=== PATIENT | male | born 1950 | race Caucasian/White ===

== ENCOUNTER 2021-05-22 15:55 | Inpatient (IN) | payer OTHER ==
[~2021-05-22] VITALS: Ht 182.9 cm; Wt 73.9 kg
[2021-05-22 20:45] VITALS: BP 121/59
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
--- NOTE | 2021-05-23 02:23 | NUR ---
PATIENT HAS BEEN UP IN DINING ROOM AND LOOKING FOR HIS . HE THINKS SHE'S SITTING OUTSIDE THE HOSPITAL IN A TRUCK. WHEN TOLD SHE WAS AT HOME AND SAFE, HE THEN COULDN'T FIGURE OUT HOW SHE GOT HOME AND WORRIED IF SHE WAS OKAY. PATIENT DID TALK ON THE PHONE WITH HIS THIS EVENING BEFORE ALL OF THIS BUT SHORT TERM MEMORY. PATIENT TOOK TRAZADONE TONIGHT FOR FIRST TIME. IT DID CAUSE HIM TO BECOME DROWSY SOON AND HE WAS A LITTLE UNSTEADY ON HIS FEET. PATIENT WAS UP OUT OF BED ONCE FOR AWHILE AND THEN STAYED IN ROOM AFTER BEING ASSISTED BACK TO BED AFTER AWHILE. PT DENIES PAIN. NO SI/HI/AVH NOTED. BED ALARM IS ON TONIGHT D/T TRAZADONE. BED IN LOW POSITION. CONTINUIED ROUNDS AND MONITORING FOR SAFETY AND STATUS OF PATIENT.
--- NOTE | 2021-05-23 03:55 | NUR ---
PATIENT HAS BEEN UP IN HIS ROOM AND TAKING HIS CHUX OFF HIS BED AND MOVING IT AROUND. TAKING KLEENEX'S OUT OF KLEENEX BOX AND COVERING THINGS. MOVING LOSE ITEMS AROUND AND LOOKING FOR GUNS. HE WAS BROUGHT OUT TO THE DINING ROOM AND PAPER AND MARKERS AND A PENCIL GIVEN TO HIM TO DO HIS "REPORTS". PATIENT GIVEN ICE WATER. PATIENT UP TRYING TO GET OUT OF RECLINER. WALKING AROUND UNSTEADY ON FEET. WONT KEEP NONSKID SOCKS ON. WANTS TO GO TO PATIENT ROOMS AND LOOK FOR THE LONG GUNS THAT ARE MISSING. PATIENT IS RESTLESS. DR YAÑEZ CALLED AND ORDER FOR SEROQUEL 50MG PO RECIEVED BY PHONE. ONE TIME ORDER. AWAITING IT TO BE PUT IN PIXUS. PT WAS GIVEN ATIVAN 1MG PO ONE TIME A FEW HOURS AGO D/T SAME KIND OF BEHAVIORS.
--- NOTE | 2021-05-23 05:29 | NUR ---
PATIENT STILL UP AND WIDE AWAKE IN DINING ROOM. SITTING IN A RECLINER AND ANXIOUS. HAS BEEN TOILETED AND WATER GIVEN TO DRINK. PATIENT YELLING OUT "ANYONE WANTING WATER, OR SOMETHING TO DRINK, COME AND GET IT!" PATIENT TRYING TO GET OUT OF CHAIR. CONTINUING TO MONITOR.
[2021-05-23 08:04] LABS: CHOLESTEROL 150 mg/dL (<200); HDL CHOLESTEROL 63 mg/dL (>40); LDL CHOLESTEROL 70 mg/dL (<100); TC:HDL 2.4 Ratio (Not establshd); TRIGLYCERIDE 88 mg/dL (<150); VLDL 18 mg/dL (<40)
[2021-05-23 09:31] VITALS: BP 126/84
--- NOTE | 2021-05-23 17:39 | NUR ---
Alert and orientated to person and place but not to time. Denies SI/HI. Mistakes female peers for and repeatedly expressing concern about her care. Ambulates with walker with steady gait under supervision. Increasingly restless, wanting to get out of chair late AM. Olanzapine given PO on 3rd approach. Calm majority of afternoon. Breath sounds clear. Reg HR auscultated. Color pink with brisk capillary refill and palpable peripheral pulses. Incontinent this AM of yellow urine, independently voided per toilet this afternoon. Smear of stool on brief. Active bowel sounds over soft, rounded abdomen. called requesting update, states pt stays busy most of day. Requesting update from Dr. Gracia when he is able. Currently in day room with peers, no s/o distress.
[2021-05-23 19:51] VITALS: BP 128/74
[2021-05-23 21:00] VITALS: BP 128/74
--- NOTE | 2021-05-23 21:08 | H ---
[facility] [place] [address] [place] [address] HISTORY AND PHYSICAL Name: FAM DU Room #: 528B-B ADM IN M.R.#: [id number] Admission: 05/22/21 Attend Phys: Juan Ramon Gracia DO Discharge: Date of : 50 Report #: [id number] THIS REPORT FOR: cc: Jak Rodriguez MD, Matthew S. MD Kerstein,Juan Ramon Sibley DO ~ DATE OF SERVICE: 05/22/2021 INPATIENT PSYCHIATRIC EVALUATION PRIMARY ATTENDING PSYCHIATRIST: Juan Ramon Gracia DO BIG DATA ADMIN: Chandrika Ortega Russell, who collaborates with Michele Gama MD and his hospitalist team. REASON FOR ADMISSION: The patient was in hospital transfer from [facility], which would best be described as behavioral disturbance in the setting of dementia. CHIEF COMPLAINT: Unspecified. HISTORY OF PRESENT ILLNESS: This is a 70-year-old male who is ill appearing, BMI 22.2, weight 74.162 kilos, height 182.88 cm. From the H and P at [facility], he presented there on 05/14 with a fall. The patient has complicated past medical history including paroxysmal atrial fibrillation, pancreatic cancer and the patient is status post Whipple, which is a pancreaticoduodenectomy. He has hypertension, history of alcoholism, gastroesophageal reflux disease and probable dementia. Additional information from the [facility] records, the patient did not know why he was here and he had no complaints. He does have a bruise on the right side of his head that appears to be a few days old. He admits he has fallen recently. The patient could not tell them at [facility] when or what was going on at the time. ADDITIONAL INFORMATION: The patient's brought him to the Emergency Room because he was not behaving normally. Apparently, the patient is normally independent in his activities of daily living; however, he has been very frustrated. They attempted to reach his by phone and she did not answer. Interestingly, myself and social professionals called her today. I left her a voicemail with my cell number to call me. REVIEW OF SYSTEMS: The patient when I asked him if he had any pain or complaints this morning he denied. from [facility] ER, he noted: CONSTITUTIONAL: Negative for chills or fever. HEENT: Negative for congestion, hearing loss, sinus pain or sore throat. Negative for blurred vision, double vision. RESPIRATORY: Negative for cough, shortness of breath and wheezing. [address] [address] HISTORY AND PHYSICAL Name: FAM DU Room #: 528B-B ADM IN M.R.#: [id number] Admission: 05/22/21 Attend Phys: Juan Ramon Gracia DO Discharge: Date of : 50 Report #: [id number] CARDIOVASCULAR: Negative for chest pain, palpitations, leg swelling. GASTROINTESTINAL: Negative for abdominal pain, constipation, diarrhea, heartburn, nausea or vomiting. GENITOURINARY: Negative for dysuria, frequency, hematuria, or urgency. MUSCULOSKELETAL: Positive for falls. Negative for back pain, joint pain, myalgias. SKIN: Negative for rash. NEUROLOGIC: Negative for dizziness, tingling, weakness and headaches. PSYCHIATRIC: The patient is noncompliant. Otherwise, review of systems is negative. PAST MEDICAL HISTORY: Quite complicated, he has a history of melena, acute blood loss anemia, gastritis with hemorrhage 06/2017. He has a history of adenocarcinoma of the head of the pancreas, aortic aneurysm without rupture, ascending aorta dilatation. He has a dilated aorta at the sinuses of Valsalva 3.7 cm and ascending aorta 3.9 cm, bilateral leg edema, chronic constipation with poor diet and chronic gastritis. Additional problems include duodenal stricture, erectile dysfunction. History of psychiatric morbidities include anxiety, depression, and alcoholism. Some more medical morbidities listed from reference to [facility] are elevated LFTs, essential hypertension, hyperbilirubinemia, history of hypokalemia, impaired fasting glucose, incidental lung nodule greater than 3 mm and less than 8 mm. This author states "I have no idea at present if there has been followup and investigation due to the lung nodule," iron deficiency anemia, long-term use of anticoagulant drug, paroxysmal atrial fibrillation, Peyronie's disease, history of seizure as a child, and severe protein-calorie malnutrition. PAST SURGICAL HISTORY: Surgical history for this patient seems to be equally complex and complicated including a right total hip arthroplasty in 05/[address] Mosqueda, decompressive laminectomy, biopsy of the duodenum in 06/2016, cholecystectomy 2015, colonic surgery 2015, EGD with endoscopic ultrasound by ERCP with stent placement 06/2016, EGD 06/2017, EGD 07/2017, EGD with hemorrhage 09/21/2017. GI biopsy 06/2016. GI sphincterotomy 06/2016. This one unexpected insertion of penile prosthesis, and inflatable penile prosthesis placement with Coloplast device on 09/11/2015. Laminectomy is noted from 2005, Whipple was in 08/2016. He does have a Port-A-Cath placement 08/2016, prostate biopsy 2013. He had repair of a hydrocele, the tunica vaginalis 1974, left tonsillectomy way back in 1956. FAMILY HISTORY: Includes colon cancer in his father, unknown abdominal cancer in his father, Alzheimer disease in his mother, Alzheimer disease in brother, early due to Alzheimer's in his brother. I am not sure if it is the same brother or different brother, but it is significant for this patient. [facility] [address] [place] [address] HISTORY AND PHYSICAL Name: FAM DU Room #: 528B-B ADM IN [facility].#: [id number] Admission: 05/22/21 Attend Phys: Juan Ramon Gracia DO Discharge: Date of : 50 Report #: [id number] SOCIAL HISTORY: Smoking history is notable half pack per day for 13 years, 6-1/2 pack year history. He smokes cigars and cigarettes and looks like he quit 10/13/1980, years since quitting 40.6. Former smokeless tobacco user. He last used smokeless tobacco in 05/1995. There is a comment here on the [facility] records that he quit smoking cigarettes in 1982, that all I can say to reconcile the differences of 81 and 83 is he last smoked most likely in early 80s. MEDICATIONS: Prior to the [facility] admission are amiodarone, amoxicillin, diltiazem, diphenhydramine, pancreatic enzyme replacement with Creon, mirtazapine, multivitamin, MiraLax, sucralfate and zolpidem. [facility] physical showed bruising on the right upper face, temporal trace, bilateral lower extremity edema. He thought the year was 2019, but knew the president was Reji. ECG done found a sinus rate of 71. So, the patient was admitted and apparently his alcohol level was 200 and now realizes previously at [facility], he states it is just a beer, so he was admitted with a fall, alcohol intoxication, complex medical history, and he was under Dr. Park's service. Interestingly, he was seen by Dr. 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 No evidence of Wernicke's. Dr. Sage recommended continue on vitamins, continue with thiamine and alcohol cessation, discontinue Ambien, no further recommendation, and he signed off. There was a CT scan of the head done in 05/2021, felt no acute intracranial process, mild cerebral volume loss, mild chronic small vessel ischemic disease, this was read at [facility]. LABORATORY DATA: From [facility] looks like from 05/16, white count 5.76. H and H 12.5 and 41, platelet count 146. Sodium 139, potassium 3.8, chloride 107, bicarbonate 23, anion gap 4, glucose 91, creatinine 0.7, calcium 8.7, albumin 3.2, total serum protein 6.1, alkaline phosphatase 92, ALT 29, AST 65, so there is a mild transaminitis. B12 level actually normal at 635. So, unfortunately with this patient, I am lacking at present collateral from his , I believe him to be living at home and it looks like he was given a CIWA protocol at [facility], and interestingly, he has some CT scan of the chest and abdomen scheduled in 08/2021, it is probably for cancer followup. So let me move on to exam this morning. He is unkempt, wearing yellow full shirt, bruising present over the right eye baptism area. Lipids done here at [place], triglycerides 88, cholesterol 150, LDL 70, HDL 63. MENTAL STATUS EXAMINATION: Well-developed, ill-appearing male appearing at least stated age. Attention is limited. Concentration is [address] [place] [address] HISTORY AND PHYSICAL Name: FAM DU Room #: 528B-B ADM IN M.R.#: [id number] Admission: 05/22/21 Attend Phys: Juan Ramon Gracia DO Discharge: Date of : 50 Report #: [id number] impaired. Speech soft, slow. mood/affect congruent-constricted Thought process is linear, very limited. Thought content with fair poverty of thought. Denied suicidal intent or plan. Denied homicidal intent or plan. No auditory, visual or tactile hallucinations. Memory not formally tested, noted to be impaired. Insight is impaired, judgment is impaired. Fund of knowledge well below average. Slow gait, normal station. PHYSICAL EXAMINATION: VITAL SIGNS: Today, temperature 36.1, pulse 82, respirations 17, BP 126/84, O2 sat 97%. FORMULATION: A 70-year-old male sent from [facility] for dementia with behavioral disturbance picture. DIAGNOSES: At this time major neurocognitive disorder, likely multifactorial with influence of alcohol cannot be excluded; Wernicke's encephalopathy was ruled out by Dr. Sage. He has numerous medical problems including history of pancreatic cancer, status post Whipple procedure. Other issues our hospitalists noted included atrial fibrillation, currently anticoagulated due to increased risk of bleeding, hypertension, gastroesophageal reflux disease, alcoholism that we are dealing with. PLAN: The patient is admitted to Geriatric Psychiatry voluntarily by his DPOA, his , whom I hope to speak with to evaluate, stabilize, and obtain collateral. The patient is currently getting olanzapine 5 mg at bedtime, I added 5 mg p.o. IM q. 6 hours p.r.n. for agitation, would like to review his history further, speak with the before we make more longer term changes to his treatment, also her goals related to placement will need to be discussed. Time spent on this case is greater than 60 minutes, greater than 50% of the time spent in review of records, coordination of care. STRENGTHS: He has a spouse support. WEAKNESSES: Early dementia, multiple medical problems. <ELECTRONICALLY SIGNED> By: Juan Ramon Gracia DO 05/23/21 [id number] Juan Ramon Gracia DO /nt
[2021-05-24 00:06] LABS: GLYCOHEMOGLOBIN (HGB A1C) 5.2 % (4.8-5.6)
--- NOTE | 2021-05-24 01:03 | NUR ---
[facility] WAS RESUMED AT 1900. HE IS ALERT AND CONFUSSED. HE AMBULATES AND MARINA/SI/AVH/HI. HE IS CONTINENT OF BOWEL AND BLADDER. LUNGS ARE CLEAR BS ACTIVE X4 QUADS. ABD IS SOFT AND NONE TENDER. HE TOOK HIS MEDS AND NURSES ENCOURAGES HIM TO RELAX WITH LITTLE EFFORT. CALL FROM [facility] WAS UNABLE TO SPEAK MUCH AND HE KEPT THE PHONE ON THE TABLE. Q 12MINUTES CHECK IS ONGOING. BED IS LOW, LOCKED AND ALARMED. CONTINUED
[2021-05-24 09:18] VITALS: BP 106/74
--- NOTE | 2021-05-24 11:52 | NUR ---
New admit to [facility] for unspecified psychosis, AMS and fall. Hx dementia, whipple for pancreatic cancer, dementia, iron deficiency anemia, etoh abuse. Visit with pt, states appetite is good, tolerates and likes most foods. Reported no wt loss. Ate 90-100% of first few meals on the unit. On thiamine, folic acid, pancreatic enzyme. BMI 22. Low nutrition risk
--- NOTE | 2021-05-24 13:33 | NUR ---
Alert and orientated to name only. Denies SI/HI. Calm, cooperative and compliant. Sitting in chair most of AM, currently ambulating. Breath sounds clear. Reg HR auscultated. Color pink with brisk capillary refill and palpable peripheral pulses. Active bowel sounds over soft, flat abdomen. Steady gait when ambulating. Area between buttocks slightly reddened.
--- NOTE | 2021-05-24 16:35 | NUR ---
WILL D/C P.T. AT THIS TIME Pt IS UP AD HERIBERTO ON UNIT (WITH WALKER), AND NSG KNOWS TO OBTAIN WALKER FOR Pt AND WHEN GIVING IT TO HIM WILL REMIND HIM THAT HE ALWAYS NEEDS TO WALK WITH A WALKER (IF Pt FORGETS TO USE A WALKER WHILE AMBULATING. Pt IS NO LONGER APPROPRIATE FOR SKILLED P.T. SO WILL D/C P.T. NOW
[2021-05-24 20:20] VITALS: BP 136/77
[2021-05-24 21:44] VITALS: BP 136/77
--- NOTE | 2021-05-25 00:05 | NUR ---
Pt is Alert to self, pt is very anxious, not able to be redirected, not able to focus on task. Impulsive, Pt exhibiting signs of visual halluncination, he is seeing a dog he has to take care of. He would not take his medication until the nurse agreed to check on the garage door. Pt still feels he is at home and not able to orient him to the fact that he is in the hospital. Pt will not rest but after taking the Olanzapine he was less anxious, able to focus and able to have a conversation with staff still experiencing visual halluncination. Denies SI/HI/AH. Will continue to monitor pt and attempt to get pt to lay in bed and get some sleep if possible.
[2021-05-25 10:49] VITALS: BP 136/77
--- NOTE | 2021-05-25 11:03 | NUR ---
PACING UP AND DOWN IN HALLWAYS MAJORITY OF SHIFT SO FAR THIS AM-APPEARS UNKEMPT WEARING ONE SOCK-ATTEMPTED TO PUT 2ND SOCK ON BUT BECOMES AGITATED WITH ATTEMPTS TO SIT HIM DOWN IN A CHAIR-TRYING EXIT DOORS-ENTERING PEERS ROOMS-DOES REDIRECT AFTETR SEVERAL VERBAL QUES-MINIMALLY VERBAL-WILL OCCASSIONALLY STATE YES OR NO. GAIT SLIGHTLY UNSTEADY-GIVEN ROLLER WALKER SEVERAL TIMES HOWEVER CONSISTANTLY REFUSING TO USE IT. CHAIR ALARM PLACED AND DID SIT FOR 1-2 MINUTES BUT THEN RESUMED PACING AND A PSYCHOTIC PATIENT GRABBED CHAIR ALARM AND WAS SWINGING IT AT STAFF. APPETITE IS FAIR. NO NOTED OR REPORTED PAIN. INCONTINENT OF URINE-NO SKIN BREAKDOWN NOTED
[2021-05-25 12:30] VITALS: BP 119/76
--- NOTE | 2021-05-25 17:20 | NUR ---
other sales support worker met with pt. Pt. was reclined in chair at a table. Pt. was cooperative and pleasant. Pt. expressed not having any concerns with the exception of getting older and losing some functioning. The pt. reported to having an issue with some indestigation which I recommended discussing with the doctor. The pt. is eager to return to his but expressed concerns with COVID.
[2021-05-25 19:41] VITALS: BP 130/84
--- NOTE | 2021-05-26 05:27 | NUR ---
05-25-21 CARE TRANSFERRED 1899 OBSERVED PT SITTING IN RECLINER IN DAY ROOM. LATER PT AAOX1, VSS, RR EVEN AND NONLABRED ON RA. PT DENIES PAIN AND SI/HI OBSERVED NO S/S OF PAIN AND NO SI/HI BEHAVIORS. PT PRESENTS CONFUSED, CALM AND COOPERATIVE. DURING MEDICATION ADMIN PT HAD NO DIFFICLUTIED TAKING MEDICATION CRUSHED IN PUDDING. LATER NOTED REDNESS IN PERIAREA, CLEANED WITH SOAP AND WATER AND BARRIER CREAM APPLIED. PT WILL CONTINUE TO BE MONITOR PER [facility] PROTOCOL.
[2021-05-26 09:43] VITALS: BP 123/77
--- NOTE | 2021-05-26 14:12 | NUR ---
PATIENT CARE ASSUMED AT 0700 - CALM AND AGREEABLE WHEN SEATED. MEDICATIONS GIVEN IN ICE CREAM OR PUDDING. ALERT AND ORIENTED TO SELF. POOR APPETITE FOR BREAKFAST BUT ATE WELL FOR LUNCH. MAKES NEEDS KNOWN WHEN NEEDING TOLLETING. SPENT MOST OF DAY IN LULY CHAIR. RESTLESS AND ATTEMPTING TO GET UP. POOR BOUNDARIES WHEN UP AMBULATING AROUND AND DOES NOT RESPOND TO REDIRECTION. DELUSIONAL THIS AFTERNOON. YELLING AT TECHS " DON'T SHOOT" - GUNS ON UNIT. [facility] AND ASSISTED EARLIER WITH TOLLETING. BARRIER CREAM APPLIED TO BUTTUCKS. CALLED DURING GROUP THIS MORNING. ADVISED WOULD MAKE CONTACT SOMETIME EARLY AFTERNOON AFTER LUNCH. STATED TOO NOISY TO TALK TO WHILE IN DINING LADD. SUGGESTED WOULD MAKE CALL DURING AFTERNOON GROUPS. WILL CONTINUE TO MONITOR PATIENT FOR SAFETY AND CHANGES IN BEHAVIOR AND ADDRESS NEEDED.
[2021-05-26 20:13] VITALS: BP 118/79
[2021-05-27 09:40] VITALS: BP 102/62
--- NOTE | 2021-05-27 14:51 | NUR ---
HAS BEEN PACING UP AND DOWN HALLWAYS MAJORITY OF SHIFT-INTRUSIVE GOING INTO OTHERS ROOMS AND WILL OCCASSIONALLY STOCK PARTS INSPECTOR PEERS BELONGINGS-DIFFICULT TO REDIRECT AT TIMES AND AT TIMES WILL REDIRECT WITHOUT DIFFICULTY. INITIALLY THIS AM NEUTRAL FACIAL EXPRESSION-COMPLIENT WITH AM MEDS-STARTING AROUND 1100 ANGRY TENSE FACIAL EXPRESSION AND RATE AND TONE OF SPEECH ELEVATED,LOUD. GAIT UNSTEADY AND HAS A RECENT HX OF FALLS AT HOME HOWEVER REFUSES TO USE WALKER OR TO ALLOW STAFF TO OFFER STANDBYE ASSIST. WHEN STAFF APPROACHED AND GREETED STATES "GO AWAY"
[2021-05-27 20:29] VITALS: BP 133/75
--- NOTE | 2021-05-28 05:37 | NUR ---
05-27-21 CARE TRANSFERRED 1899. PT AAOX1, VSS, RR EVEN AND NONLABORED ON RA, PT DENIES SI/HI AND PAIN AND OBSERVED NO S/S OF PAIN AND NO HI/SI BEHAVIOR. PT PRESENTS PLESANTLY CONFUSED BUT HAS REMAINED CALM AND COOPERATIVE. LATER PT WANTED TO RESPOND TO ANOTHER PT REQUESTING HELP, PT WAS EASILY REDIRECTED. DURING MEDICATION ADMIN PT HAD NO DIFFICULTIES TAKING CRUSHED IN PUDDING AND ATE 100% PUDDING CUP. LATER PT WAS ASSISTED INTO BED AND BED WAS ADJUSTED FOR COMFORT, LOWEST POSITION, LOCKED AND ALARM SET. LATER PT CAME OUT OF ROOM REQUESTING WATER, PT DRANK 480ML OF WATER WITH NO DIFFICULTY. PT HAS BEEN RESTLESS ON AND OFF DURING THIS SHIFT. PT WILL CONTINUE TO BE MONITOR PER [facility] PROTOCOL.
[2021-05-28 08:00] VITALS: BP 110/83
[2021-05-28] MEDS ORDERED: PACERONE 200 M200 M1 PO (09:48)
[2021-05-28] MEDS ORDERED: ZYPREXA 5 MG TAB5 M1 PO ×2 (09:49→09:50)
[2021-05-28] MEDS ORDERED: PANCREAZE DR 11 EAC2 PO (09:51)
[2021-05-28] MEDS ORDERED: FOLIC ACID1 MG PO (09:51)
[2021-05-28] MEDS ORDERED: VITAMIN B-1100 M2 PO (09:52)
[2021-05-28 12:01] VITALS: BP 110/83
--- NOTE | 2021-05-28 13:19 | NUR ---
PATIENT DEPARTED AT 1300 WITH [facility] HELP. PATIENT ALERT AND AGREEABLE. DOCUMENTATION SIGNED VIA PHONE CALL TO DPOA - WEI. PATIENT GIVEN SCRIPT FOR VISITING NURSES PSYCHIATRIC REQUESTED BY VEENA. ELEVEN AND NOON MEDICATIONS ADMINISTERED. ESCORTED DOWN TO SECURITY IN ER AND PERSONNEL BELONGINGS GIVEN TO PATIENT.
--- NOTE | 2021-05-28 13:35 | NUR ---
patient departed at 1300 with in home help. patient agreeable and alert. called dpoa and signed paperwork authorization via phone apporval. belongings sent with patient and script for visiting nurses psychiatric as well. transported home via private vehicle.
--- NOTE | 2021-05-29 21:03 | D ---
[facility] [address] [place] [address] DISCHARGE SUMMARY Name: FAM DU Room #: 528B-B DIS IN M.R.#: [id number] Admission: 05/22/21 Attend Phys: Juan Ramon Gracia DO Discharge: 05/28/21 Date of : 50 Report #: [id number] THIS REPORT FOR: cc: Jka Rodriguez MD, Matthew S. 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 MEDICAL COMORBIDITIES: Include recent fall, history of atrial fibrillation, not on anticoagulation secondary to risk of bleeding, rate controlled, on amiodarone; hypertension; history of pancreatic cancer, status post pancreaticoduodenectomy, on pancreatic enzyme replacement; GERD; history of alcoholism without any period of sobriety over multiple decades. The patient is discharging to his home where he lives with his , Anita, they have 24-hour attendant care. This was done on his request. Aftercare arranged by our director social service is as follows: Appointment with Dr. Patsy Moy, time to be arranged. He should see primary care physician in 1 month. DIET: Regular Ensure twice daily. DISCHARGE MEDICATIONS: As follows: Amiodarone 100 mg oral daily at 0900 hours, olanzapine 5 mg oral at 0900 hours, the last minute due to insurance refusal, I changed his evening olanzapine from 12.5 to 10 mg at 2100 hours. pancreatic enzyme replacement 10,500 unit capsule 4 capsules with meals, folic acid 1 mg oral daily for supplementation, thiamine 200 mg oral daily for supplementation. Avoidance of alcohol strongly encouraged, this is relayed to the . The patient can walk on his own, but does require supervision due to elevated fall risk at times. LABORATORY DATA: This admission, A1c 5.2, triglycerides 88, cholesterol 150, LDL 70, HDL 63. REASON FOR ADMISSION: As follows: A 70-year-old male transferred [facility] [address] [place] [address] DISCHARGE SUMMARY Name: FAM DU Room #: 528B-B [facility] IN [facility].#: [id number] Admission: 05/22/21 Attend Phys: Juan Ramon Gracia DO Discharge: 05/28/21 Date of : 50 Report #: [id number] from [facility]. The patient was ill appearing. He had a behavioral disturbance and fallen recently. Inpatient psychiatric evaluation was requested. HOSPITAL COURSE: The patient was admitted to Geriatric Psychiatry Unit. The patient was obviously quite impaired at baseline, generally pleasant. They had him on 5 mg of olanzapine at bedtime from [facility], so I titrated dose slightly to 15 mg a day. The patient is confused. Denied suicidal or homicidal on the day of discharge. I discussed long-term care placement with his , but she wanted him to return home with 24-hour attendant care. PHYSICAL EXAMINATION: VITAL SIGNS: On day of discharge, temperature 35.7, pulse 76, respirations 20, BP 110/83, BMI 22.1. GENERAL: Unkempt male, appearing stated age. MENTAL STATUS EXAMINATION: Well-developed, ill-appearing male. Attention limited. Concentration limited. Speech normal in rate. Thought process linear, goal directed for basic concepts. Thought content, fair poverty of thought. Denied SI, HI. Denied auditory, visual, or tactile hallucinations. Memory not formally tested, Insight limited. Judgment limited. Fund of knowledge: Below average. Mood and affect were constricted, congruent. Prognosis for this patient is quite guarded given his fairly advanced dementia and age of 70 with multiple morbidities. <ELECTRONICALLY SIGNED> By: Juan Ramon Gracia DO 05/29/212102 26 16 Juan Ramon Gracia DO /nt
--- NOTE | 2021-05-30 16:39 | NUR ---
Per Requested from Dr. Gracia, [facility] faxed a home health order to [facility] at [phone]
== END 2021-05-28 13:40 | disposition home health service (06) | DRG 57 ==
LOC: SBH
PROVIDERS: ADMIT Psychiatry & Neurology Psychiatry; ATTEND Psychiatry & Neurology Psychiatry
DX: G30.9 Alzheimer's disease, unspecified (principal); F02.81 Dementia in other diseases classified elsewhere, unspecified severity, with behavioral disturbance; F29 Unspecified psychosis not due to a substance or known physiological condition; I48.91 Unspecified atrial fibrillation; I10 Essential (primary) hypertension; K21.9 Gastro-esophageal reflux disease without esophagitis; F10.21 Alcohol dependence, in remission; Y90.9 Presence of alcohol in blood, level not specified; G40.909 Epilepsy, unspecified, not intractable, without status epilepticus; F41.9 Anxiety disorder, unspecified; F32.9 Major depressive disorder, single episode, unspecified; Z20.822 Contact with and (suspected) exposure to COVID-19; Z96.641 Presence of right artificial hip joint; Z85.07 Personal history of malignant neoplasm of pancreas; Z80.0 Family history of malignant neoplasm of digestive organs; Z87.891 Personal history of nicotine dependence; Z90.49 Acquired absence of other specified parts of digestive tract; Z88.0 Allergy status to penicillin
CPT/HCPCS: 10880

== ENCOUNTER 2021-05-22 19:41 | Emergency (ER) | payer OTHER ==
[~2021-05-22] VITALS: Ht 180.3 cm; Wt 83.9 kg
[2021-05-22 19:43] VITALS: BP 136/82
== END 2021-05-22 20:31 ==
LOC: ER 19:41
DX: F91.9 Conduct disorder, unspecified (principal); Z20.822 Contact with and (suspected) exposure to COVID-19; I48.91 Unspecified atrial fibrillation; K21.9 Gastro-esophageal reflux disease without esophagitis; I10 Essential (primary) hypertension; Z88.0 Allergy status to penicillin